=== PATIENT | female | born 1975 | race Caucasian/White ===

== ENCOUNTER → 2018-01-27 14:04 | Outpatient (CLI) | payer OTHER, SELFPAY | PROVIDERS: Visit Provider Podiatrist | DX: M25.571 Pain in right ankle and joints of right foot (principal); M25.371 Other instability, right ankle; S93.401A Sprain of unspecified ligament of right ankle, initial encounter; M24.071 Loose body in right ankle; S92.134A Nondisplaced fracture of posterior process of right talus, initial encounter for closed fracture | CPT/HCPCS: 73721 ==